=== PATIENT | female | born 1980 | race African-American/Black ===

== ENCOUNTER 2020-09-14 20:18 | Emergency (ER) | payer MEDICAID ==
[~2020-09-14] VITALS: Ht 165.1 cm; Wt 77.1 kg
[2020-09-14 20:20] VITALS: BP 133/76
== END 2020-09-14 22:52 | disposition home or self-care (01) ==
LOC: ER 20:20
DX: R60.0 Localized edema (principal); Z88.0 Allergy status to penicillin